=== PATIENT | female | born 1940 | race Caucasian/White ===

== ENCOUNTER → 2018-01-03 | Outpatient (CLI) | payer MEDICARE ==
[~2018-01-03] MED LIST: AMLODIPINE BESYL5 MG PO; AZITHROMYCIN250 MG PO; BAYER WOMEN'S1 EACH PO; CENTRUM SILVER1 EAC1; CULTURELLE1 EACH; DIAZEPAM5 MG PO; FLUTICASONE; LEVOTHYROXINE75 MCG PO; LOSARTAN POTASS25 MG PO; METRONIDAZOLE500 MG PO; NITROSTAT0.4 MG; NORVASC10 MG PO; NORVASC5 MG PO; OMEPRAZOLE40 MG; OMEPRAZOLE40 MG PO; OTC ALLERGY; SIMVASTATIN20 MG PO; VITAMIN B-121000 MC1; VITAMIN C1000 MG; VITAMIN D1000 UNI1 PO
--- NOTE | 2018-01-03 12:53 | Diagnostic Imaging Report ---
EXAM: Renal Duplex Ultrasound INDICATION: \S\ESSENTIAL HYPERTENSION COMPARISON: CT 04/19/2015 TECHNIQUE: Color Doppler and waveform spectral analysis were obtained of the renal vessels and abdominal aorta. FINDINGS: Aorta PSV = 79.4 cm/sec Right Kidney: Size: 10.9 cm in length, cortex 1.6 cm in thickness Echogenicity: Within normal limits Main renal artery PSV: Ostium = 167 cm/sec Proximal = 149 cm/sec Mid = 129 cm/sec Distal = 123 cm/sec Intrarenal (segmental or interlobar) arteries: Acceleration time: Normal Resistive index: Normal RA PSV/aorta PSV ratio (RAR) = 2.1 Left Kidney: Size: 10.5 cm in length, cortex 2 cm in thickness Main renal artery PSV: Ostium = 134 cm/sec Proximal = 145 cm/sec Mid = 141 cm/sec Distal = 115 cm/sec Intrarenal (segmental or interlobar) arteries: Acceleration time: Normal Resistive index: Normal RA PSV/aorta PSV ratio (RAR) = 1.8 Main Renal Veins: Flow Present IMPRESSION: No evidence of renal artery stenosis or renal thrombosis. Signed by: DR. Eric Whelan MD on 01/03/2018 12:50 PM
--- NOTE | 2018-01-03 12:54 | Diagnostic Imaging Report ---
EXAM: Renal Ultrasound INDICATION: \S\ESSENTIAL HYPERTENSION COMPARISON: None TECHNIQUE: Transverse and longitudinal images of the kidneys and bladder were obtained. FINDINGS: Right Kidney: Size: 10.9 x 4.8 x 5 cm, cortex 1.6 cm Echogenicity: Normal Parenchymal thickness: Normal Collecting system: No hydronephrosis Stones: None Cyst/Mass: None Left Kidney: Size: 10.5 x 5.6 x 5.5 cm, cortex 2 cm Echogenicity: Normal Parenchymal thickness: Normal Collecting system: No hydronephrosis Stones: None Cyst/Mass: None Bladder: Normal. Both ureteral jets visualized. IMPRESSION: Normal renal ultrasound exam. Signed by: DR. Eric Whelan MD on 01/03/2018 12:51 PM
== END ==
LOC: US 10:42
PROVIDERS: ATTEND Internal Medicine Cardiovascular Disease
DX: I10 Essential (primary) hypertension (principal)
CPT/HCPCS: 76770; 93976